=== PATIENT | female | born 1965 | race Caucasian/White ===

== ENCOUNTER 2017-01-07 05:45 | Day surgery (SDC) | payer OTHER ==
[2017-01-05 13:10] LABS: INTERNATIONAL NORMAL RATI 1.2 UNITS (-); PARTIAL THROMBO TIME 32.6 SEC (22.5-37.2); PROTIME (NOT ORD) 14.8 SEC (12.0-14.5)
[2017-01-05 13:12] LABS: MEAN CORPUS HGB CONC 33.7 g/dL (32.0-36.0); MEAN CORPUSCULAR HEMOGLOB 28.7 pg (26.0-34.0); MEAN PLATELET VOLUME 9.5 fL (9.2-13.0); RED CELL COUNT 3.59 10/6/uL (4.0-5.6)
[2017-01-05 13:13] LABS: HEMATOCRIT 30.6 % (36.0-48.0); HEMOGLOBIN 10.3 g/dL (12.0-16.0); MANUAL DIFF YES %; MEAN CORPUSCULAR VOLUME 85.2 fL (80-100); PLATELET COUNT 154 10/3/uL (150-400); RBC DISTRIBUTION WIDTH 16.2 % (12.0-16.0); WHITE BLOOD CELLS 12.8 10/3/uL (4.5-10.5)
[2017-01-05 13:17] LABS: BUN (BLOOD UREA NITROGEN) 14 MG/DL (6-23); CALCIUM, SERUM 8.6 MG/DL (8.5-10.4); CHLORIDE, SERUM 98 MMOL/L (96-112); CO2 (CARBON DIOXIDE) 22 MMOL/L (24-34); CREATININE 0.69 MG/DL (0.55-1.02); GFR AFRICAN AMERICAN 115 ML/MIN (>=60); GFR NON AFRICAN AMERICAN 99 ML/MIN (>=60); GLUCOSE, SERUM 111 MG/DL (60-99); POTASSIUM, SERUM 4.2 MMOL/L (3.5-5.3); SGOT(AST) 277 U/L (5-40); SGPT(ALT) 168 U/L (5-65)
[2017-01-05 13:18] LABS: A/G RATIO 0.5 (0.7-1.9); ALBUMIN 2.3 G/DL (3.5-5.0); ALKALINE PHOSPHATASE 783 U/L (45-117); GLOBULIN 4.7 G/DL (2.5-4.1); SODIUM, SERUM 132 MMOL/L (135-148); TOTAL BILIRUBIN 2.8 MG/DL (0-1.2)
[2017-01-05 13:43] LABS: BAND NEUTROPHILS 12 %; LYMPHOCYTES 4 %; LYMPHOCYTES ABSOLUTE (CALC) 0.51 10/3/uL (0.67-4.30); MONOCYTES 2 %; MONOCYTES ABSOLUTE (CALC) 0.26 10/3/uL (0.21-1.20); NEUTROPHILS ABSOLUTE (CALC) 12.03 10/3/uL (2.02-8.40); PLATELET ESTIMATE ADQ (ADEQUATE); RBC MORPHOLOGY NORM (NORMAL); SEGMENTED NEUTROPHIL (0) 82 %; TOTAL NUCLEATED CELLS 100
--- NOTE | ~2017-01-07 | OP ---
Record Of Operation [facility] [address] [place]. [address] NAME: DILLON GUERRA : 61 STATUS : REG [facility] PAT#: [id number] AGE: 51 ADM/REG DATE : 01/07/17 MR#: [id number] REPORT SERV DATE: 01/07/17 DICTATED BY: NATALY ROWAN III DATE: 01/07/17 REPORT STATUS : Draft TRANSCRIBED BY: MODStephon DATE: 01/07/17 DATE OF PROCEDURE: 01/07/2017 PREOPERATIVE DIAGNOSIS: Recurrent breast cancer with need for subclavian vein Port-A-Cath placement to allow for chronic IV access for chemotherapy. POSTOPERATIVE DIAGNOSIS: Recurrent breast cancer with need for subclavian vein Port-A-Cath placement to allow for chronic IV access for chemotherapy. PROCEDURE: Left subclavian vein Port-A-Cath placement with fluoroscopy. SURGEON: Nataly Rowan M.D. ANESTHESIA: General with intubation. COMPLICATIONS: None. ESTIMATED BLOOD LOSS: Less than 5 mL. SPECIMENS: None. DRAINS: None. LAP AND SPONGE COUNT: Correct x3. BRIEF HISTORY: This 51-year-old female was recently diagnosed with recurrent breast cancer. We were asked by her medical oncologist to place a Port-A-Cath to allow for chronic IV access for chemotherapy. This procedure, the risks, benefits, and alternatives, including not limited to the risk for bleeding, infection, pneumothorax, air embolus, pericardial tamponade, failure of the port to function, infection of the port or subclavian vein thrombosis requiring removal of the port, dislodgement of the Port-A-Cath tubing requiring extraction, and unforeseen complications including deep venous thrombosis, pulmonary embolus, myocardial infarction, stroke, pneumonia, and , were fully and completely explained to the patient prior to surgery. Her questions were answered. She understood the risks and agreed to surgery as planned. DESCRIPTION OF PROCEDURE: After being appropriately identified and after discussing risks of surgery with her again in the preoperative area, the patient was taken to the operating room and placed in the supine position on the operating room table. General anesthesia was administered. She was intubated without difficulty. The upper chest and neck areas were prepped and draped sterilely in the usual fashion. After an appropriate "time-out" per JCAHO discharge standards, an 18-gauge needle was used to identify the left subclavian vein. The vein was identified on the first pass of the needle. A guidewire was passed through the needle and the needle was removed. Fluoroscopy was performed, confirming the tip of the guidewire to be in the correct position in the superior vena cava. A small transverse incision was then made at the exit site of the guidewire from the skin. A subcutaneous Record Of Operation [address] [place]. [address] NAME: DILLON GUERRA : 61 STATUS : REG [facility] PAT#: [id number] AGE: 51 ADM/REG DATE : 01/07/17 MR#: [id number] REPORT SERV DATE: 01/07/17 DICTATED BY: NATALY ROWAN III DATE: 01/07/17 REPORT STATUS : Draft TRANSCRIBED BY: CHRISTIANO DATE: 01/07/17 infraclavicular pocket was made of the appropriate size for the Port-A-Cath housing. The Port-A-Cath housing and tubing were assembled, flushed with a heparin solution and the tubing cut to the appropriate length. The introducer was then placed over the guidewire. The guidewire and inner dilator were removed. The Port-A-Cath tubing was then placed through the sheath as the sheath was peeled away. This went very smoothly. The Port-A-Cath housing was positioned in the infraclavicular pocket. It was secured in place with 2-0 silk sutures to the chest wall. Repeat fluoroscopy was performed, confirming the tip of the Port A-Cath tubing to be in the correct position of superior vena cava. The port was accessed with a Baron needle. It was noted to aspirate blood easily. It was then flushed with heparin solution, noted to flush easily. Hemostasis was assured. The subcutaneous tissue was closed with running 3-0 Vicryl suture. The skin was closed with running subcuticular 4- 0 Monocryl stitch. The incision was injected with 0.5% Marcaine. Dressings were applied. Anesthesia was reversed. The patient was taken to the recovery room in stable condition. She tolerated the procedure well. Her family was informed of the results of surgery. The patient was discharged when stable and comfortable and after chest x-ray has been cleared per Radiology. Her family was advised that she should not drive for two to three days after surgery while using narcotics, that she should resume her usual medications and that she should keep her wound clean and dry for 48 hours. She has been asked to return in two weeks for followup or sooner if fever, chills, wound drainage, or other problems prior to that time. She was given a prescription for Percocet 7.5 one p.o. t.i.d., #12, as needed for pain, which she was advised not to use while driving. She was advised that the port will need to be flushed monthly and this will be arranged per her medical oncologist. RHJ/MODL Nataly Rowan III, M.D. / [id number] CC: Odilia Avery III
--- NOTE | ~2017-01-07 | PREOPHP ---
PreOp History and Physical [id number] [place]. [address] NAME: DILLON GUERRA : 61 STATUS : PRE [facility] PAT#: [id number] AGE: 51 ADM/REG DATE : MR#: [id number] REPORT SERV DATE: 01/07/17 DICTATED BY: NATALY ROWAN III DATE: 12/31/16 REPORT STATUS : Draft TRANSCRIBED BY: MODStephon DATE: 12/31/16 HISTORY OF PRESENT ILLNESS: This 51-year-old female comes to the operating room for subclavian vein Port-A-Cath placement to allow for chronic IV access for chemotherapy. The patient has recently been diagnosed with stage IV breast cancer. She has hepatic metastasis and bone metastasis as well as a large malignancy in the right supraclavicular area. She is receiving chemotherapy. We have been asked by her medical oncologist to place a Port-A-Cath to allow for chronic IV access for chemotherapy. PAST MEDICAL HISTORY: Stage IV breast cancer with known hepatic and skeletal metastasis. MEDICATIONS: Tamoxifen, Flexeril, and Cymbalta. PHYSICAL EXAMINATION: GENERAL: This is a female, in no acute distress. She is alert and oriented x3. She has a firm, poorly defined mass in the right supraclavicular area, which is biopsy-proven to be a metastatic breast cancer. LUNGS: Clear. CARDIAC: Normal. NEURO: Cranial nerves II through XII are normal. ASSESSMENT: 1. A 51-year-old female with stage IV breast cancer with hepatic and skeletal metastasis. 2. Previous history of right breast cancer, treated with modified radical mastectomy and prophylactic left simple mastectomy in July 2012. PLAN: The patient comes to the operating room now for subclavian vein Port-A-Cath placement. This procedure, the risks, benefits, and alternatives, including not limited to the risk for bleeding, infection, pneumothorax, air embolus, pericardial tamponade, dislodgement of Port- A-Cath tubing requiring extraction, failure of the port to function, infection of the port, or subclavian vein thrombosis requiring removal the port, dislodgement of the Port-A-Cath tubing requiring extraction, and unforeseen complications including deep venous thrombosis, pulmonary embolus, myocardial infarction, stroke, pneumonia, and , have been explained to the patient prior to surgery. Her questions have been answered. She understands the risks and agrees to surgery as planned. RHJ/CHRISTIANO Nataly Rowan III, M.D. / [id number]
[~2017-01-07 05:45] MED LIST: ALEVE220 MG PO; AUG875 PO; CYANO1000T PO; CYMBALTA60 PO; EFFEXXR75 PO; FLEX PO; FLEXERIL5 MG PO; IBU-200200 MG PO; MAGNESIUM PO; MAXIDONE PO; MIRALAX POWDER1 PKT PO; NAP500 PO; OXYCOD PO; PR25 PO; TAMOXIFEN20 M1 PO; VITAMIN D1000 UNI1 PO; ZOFRAN8 PO
[2017-05-28] MEDS ORDERED: CALTRAT600 PO (16:46)
[2017-06-01] MEDS ORDERED: DEX4 PO (10:36)
[2017-06-01] MEDS ORDERED: MIRALAX POWDER1 PKT PO (10:37)
[2017-06-01] MEDS ORDERED: PROTONIX PO (10:37)
== END 2017-01-07 10:02 | disposition home or self-care (01) ==
LOC: SDC 05:45
PROVIDERS: Surgery
PROC: 0JHF0XZ Insertion of Tunneled Vascular Access Device into Left Upper Arm Subcutaneous Tissue and Fascia, Open Approach (ICD-10-PCS; principal; 2017-01-07 05:45)
DX: C50.919 Malignant neoplasm of unspecified site of unspecified female breast (principal); E66.9 Obesity, unspecified; R56.9 Unspecified convulsions; M06.9 Rheumatoid arthritis, unspecified; I89.0 Lymphedema, not elsewhere classified; M79.7 Fibromyalgia; F32.9 Major depressive disorder, single episode, unspecified; D64.9 Anemia, unspecified; C78.7 Secondary malignant neoplasm of liver and intrahepatic bile duct; J90 Pleural effusion, not elsewhere classified; Z90.13 Acquired absence of bilateral breasts and nipples; Z98.51 Tubal ligation status
CPT/HCPCS: 71010; 71020; 76000; 80053; 85025; 85610; 85730; 93005; C1751; J0690; J2250; J2405; J3010

== ENCOUNTER 2017-02-01 11:49 | Inpatient (IN) | payer OTHER ==
--- NOTE | ~2017-02-01 | CN ---
Consultation Report [facility] [address] [place]. [address] NAME: DILLON GUERRA : 61 STATUS : ADM Bonnie PAT#: [id number] AGE: 51 ADM/REG DATE : 02/01/17 MR#: [id number] REPORT SERV DATE: 02/02/17 DICTATED BY: ANALI SALAS DATE: 02/02/17 REPORT STATUS : Draft TRANSCRIBED BY: MODL DATE: 02/02/17 NEUROLOGY CONSULTATION DATE OF CONSULTATION: 02/02/2017 REASON FOR CONSULTATION: Seizure. ONCOLOGIST: Dr. Antionette Mcintyre. HOSPITALIST: Dr. Luda Hwang. HISTORY OF PRESENT ILLNESS: The patient is a 51-year-old female, who has a history of metastatic breast cancer, stage IV, and she has been under the care of Dr. Antionette Mcintyre. Yesterday afternoon, the patient was at home with her daughter. The daughter was in another room and she overheard her mother let out a sudden scream. She came into the living room to find her slumped over a chair having "jerky movements." These movements lasted less than one minute and resolved. The daughter did not witness any tongue biting nor did the patient have any incontinence. She was postictal after the event. The daughter called 911, and the patient was brought to the emergency department for further evaluation and treatment. When questioned more extensively, the patient mentioned that she did have some seizure activity in her late teen years. She was placed on Dilantin therapy for four to five years. PAST MEDICAL HISTORY: Stage IV breast cancer with metastases to the liver, bone, and brain. PAST SURGICAL HISTORY: Status post bilateral mastectomy with breast reconstruction. HOME MEDICATIONS: List includes Eliquis 5 mg b.i.d., Natasha 20 mg daily, Zofran 8 mg q.8 hours p.r.n., Roxicodone 5 mg every four hours p.r.n., and Phenergan 25 mg every four hours p.r.n. ALLERGIES: NONE. SOCIAL HISTORY: The patient is . She has four children. She used to work at [employer]. She does not smoke, drink alcohol, or use recreational drugs. FAMILY HISTORY: The patient's mother is alive. She is 72 and has no significant health issues. Her father at the age of 70 with an MD. She has one brother who is obese. REVIEW OF SYSTEMS: See HPI for pertinent positives. PHYSICAL EXAMINATION: GENERAL: The patient is a 51-year-old female, who stands 5 feet 2 inches tall and weighs Consultation Report [id number] [facility] [place]. [address] NAME: DILLON GUERRA : 61 STATUS : ADM Bonnie PAT#: [id number] AGE: 51 ADM/REG DATE : 02/01/17 MR#: [id number] REPORT SERV DATE: 02/02/17 DICTATED BY: ANALI SALAS DATE: 02/02/17 REPORT STATUS : Draft TRANSCRIBED BY: CHRISTIANO DATE: 02/02/17 176 pounds. She is afebrile. VITAL SIGNS: Heart rate 99, respiratory rate 16, O2 saturations on 2 L nasal cannula 94%, and blood pressure 163/86. NEUROLOGIC: The patient is a 51-year-old female who is awake. She is alert x4. Communicates appropriately. Speech is clear. Language is fluent. Pupils are 3 mm. PERRLA. The patient does have a dysconjugate gaze. She has a cranial nerve palsy #6, and she has a partial gaze palsy (cranial nerve #6). She does not have total range of motion with the right eye. Consequently, she does have diplopia. Other cranial nerves are intact. She has limited range of motion with the right arm. It is wrapped for lymphedema, but can wiggle fingers. Strength in the left arm is 5/5. DTRs 1+ bilaterally. No reported sensory deficits. Riuygq-vk-vlox with the left arm is appropriate. Lower extremity strength is 2/5 bilaterally. Patellar reflexes are 1+ bilaterally. Downgoing toes. No reported sensory deficits. NECK: No carotid bruits, JVD, or thyromegaly. CHEST: Lung sounds clear. CARDIAC: Regular rate and rhythm. LABORATORY DATA: CBC shows an H and H of 9.5 and 28.4 and platelet count 107. BMP: Potassium 3.6. TSH is normal. Urinalysis is negative for UTI. MRI of the brain without gadolinium shows stable noncontrast MRI. Faint signal alteration in the region known for metastases (left nikolas, left clivus, and proximal C-spine, questionable red marrow conversion). ASSESSMENT/PLAN: 1. Tonic-clonic seizure, most likely secondary to brain metastasis. The patient will be continued on b.i.d. She will be placed on seizure precautions and Ativan has been ordered p.r.n. seizure only. Her MRI will be repeated with gadolinium to enhance metastatic lesion. She will also have an MRI of the C-spine with gadolinium. An EEG will be performed. Further additional lab work will be drawn. 2. 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 3. Anemia from gastrointestinal bleed. The GI team is following her for this. Thank you again for including us in consultation. We will continue to follow with you. COLE/CHRISTIANO DAVID ReynoldsP- / [id number] CC: Consultation Report [address] [address] NAME: DILLON GUERRA : 61 STATUS : ADM Bonnie PAT#: [id number] AGE: 51 ADM/REG DATE : 02/01/17 MR#: [id number] REPORT SERV DATE: 02/02/17 DICTATED BY: ANALI SALAS DATE: 02/02/17 REPORT STATUS : Draft TRANSCRIBED BY: CHRISTIANO DATE: 02/02/[address] LUDA Sanchez M.D. Luda Hwang II, MD
--- NOTE | ~2017-02-01 | DS ---
Discharge Summary [facility] [address] [place]. [address] NAME: DILLON GUERRA : 61 STATUS : DIS IN PAT#: [id number] AGE: 51 ADM/REG DATE : 02/01/17 MR#: [id number] REPORT SERV DATE: 02/06/17 DICTATED BY: NICOLE MURPHY DATE: 02/05/17 REPORT STATUS : Draft TRANSCRIBED BY: MODL DATE: 02/05/17 ADMISSION DATE: 02/01/2017 DISCHARGE DATE: 02/05/2017 CHIEF COMPLAINT: Seizure. DISCHARGING DIAGNOSES: 1. 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 2. Metastatic breast cancer. 3. Deep vein thrombosis. 4. Anemia likely due to chemotherapy. 5. Heme-positive stools. HISTORY OF PRESENT ILLNESS: Please see full H and P for details regarding initial presentation. HOSPITAL COURSE: 1. Seizure. The patient was seen by Neurology, started on Keppra. MRI did reveal new brain metastases. She was started on Decadron. She has been seen by Radiation Oncology. She will continue to follow with them regarding these brain metastases. 2. Metastatic breast cancer with progression. The patient had increasing metastases on MRI of the brain. Dr. Mcintyre did follow along with us and Dr. Burns from Radiation Oncology. She had treatment today, and she will follow up for continued treatment per Radiation Oncology and Medical Oncology recommendations. In the interim, she will be on 4 mg every six hours of Decadron p.o. 3. History of DVT. The patient is on Eliquis. 4. Anemia. This is thought may be due to heme-positive stools, although Dr. Mcintyre thought this is much more likely due to chemotherapy. Eliquis was resumed and her hemoglobin has been stable. She is 9.6 on the day of discharge. 5. Chronic pain. Continue outpatient medications. Dr. Mcintyre to follow. NEW MEDICATIONS AT DISCHARGE: Keppra 500 mg p.o. b.i.d., Decadron 4 mg p.o. q.6 hours. PERTINENT IMAGING THIS ADMISSION: MRI of the brain; impression, pontine and cerebellar tonsil metastases identified; however, the left hemisphere now demonstrates several additional small 2 x 2 mm metastases not seen on the previous December exam suggesting RECIST criteria progressive disease. DISPOSITION: Home. FOLLOWUP: Medical Oncology and Radiation Oncology. Time spent on this discharge is greater than 30 minutes. Discharge Summary [address] [place] [address] NAME: DILLON GUERRA : 61 STATUS : DIS IN PAT#: [id number] AGE: 51 ADM/REG DATE : 02/01/17 MR#: [id number] REPORT SERV DATE: 02/06/17 DICTATED BY: NICOLE MURPHY DATE: 02/05/17 REPORT STATUS : Draft TRANSCRIBED BY: CHRISTIANO DATE: 02/05/17 NANCY/CHRISTIANO Nicole Murphy MD / [id number] CC: Nicole Murphy MD
--- NOTE | ~2017-02-01 | EEG ---
Electroencephalogram [facility] [address] [place]. [address] NAME: DILLON GUERRA : 61 STATUS : ADM Bonnie PAT#: [id number] AGE: 51 ADM/REG DATE : 02/01/17 MR#: [id number] REPORT SERV DATE: 02/02/17 DICTATED BY: DATE: REPORT STATUS : Draft TRANSCRIBED BY: MODL DATE: 02/02/17 Neurology EEG REPORT CLINICAL INDICATION: New onset seizures. DESCRIPTION: This EEG was performed using 10/20 electrode placement system. During the EEG study, symmetric background activity was noted with predominant occipital rhythm of roughly 8 to 9 hertz. Photic stimulation was performed with appropriate driving response and hyperventilation was not performed. The patient achieved drowsy state as well as stage I and II sleep with appropriate sleep spindles. No focal abnormalities, seizure activity, or seizure discharge was otherwise seen during the EEG evaluation. INTERPRETATION: This EEG study obtained during awake, drowsy as well as stage I and II sleep may be considered within normal limits. No focal abnormalities, seizure activity, or seizure discharge was otherwise noted during the EEG study. Of note, normal EEG does not preclude the diagnosis of seizure disorder. Clinical correlation is recommended. [facility]/MODL Donnell Conteh MD / [id number] CC: Nicola Baird MD
--- NOTE | ~2017-02-01 | HP ---
History And Physical [id number] [facility] [place]. [address] NAME: DILLON GUERRA : 61 STATUS : ADM Bonnie PAT#: [id number] AGE: 51 ADM/REG DATE : 02/01/17 MR#: [id number] REPORT SERV DATE: 02/02/17 DICTATED BY: WILLIAM MAURICE DATE: 02/01/17 REPORT STATUS : Draft TRANSCRIBED BY: MODL DATE: 02/01/17 DATE OF ADMISSION: 02/01/2017 CHIEF COMPLAINT: Seizure at home today. HISTORY OF PRESENT ILLNESS: This is a 51-year-old female with history of metastatic breast cancer, followed by Dr. Antionette Mcintyre, who presents to the emergency room at [facility] after she had a seizure disorder at home. History is obtained from the patient, her daughter who is at bedside, and reviewing data available on the [employer] system. According to Mrs. Guerra and her daughter, she was in her usual state of health until this afternoon when she was sitting in a chair, and her daughter found her on the couch leaning over sideways and having jerky movements. She was drooling saliva from corner of her mouth. No tongue biting. No bowel or urinary incontinence. The patient was lowered to the floor, EMS was summoned, and the patient was brought to the emergency room here. According to the daughter, the patient was staring straight ahead, not responding to any oral commands, not verbalizing anything. Apparently, she was in a postictal state. In the emergency room, her postictal state slowly resolved, but initial workup revealed she had significant new anemia and stool Hemoccult was positive. They called Oncology on-call, spoke with Dr. Woo, who wanted two units of blood to be transfused and Neurology to see her. Hospitalist Service was asked to admit her for further evaluation and treatment. At the time of my evaluation, she was wide awake, alert, oriented to time, place, and person. She did not remember events of what had happened. She denied any chest pain, palpitations, or orthopnea. She had no cough, hemoptysis, night sweats, or weight loss. She did not have any recent fevers, chills, nausea, vomiting, or diarrhea. No history of recent hematemesis, hematochezia, or hematuria according to her. Her stools according to her were dark brown but not black or tarry. PAST MEDICAL HISTORY: Significant for stage IV metastatic breast cancer with mets to the liver and bones under the care of Dr. Antionette Mcintyre. She also has a left subclavian port placed. SOCIAL HISTORY: She does not smoke, drink, or use recreational drugs. FAMILY HISTORY: Noncontributory. MEDICATIONS: At home were reviewed by me in the chart today and reordered by me. REVIEW OF SYSTEMS: As in history of present illness. All other systems were reviewed in detail and are quite unremarkable. PHYSICAL EXAMINATION: History And Physical [address] [address] NAME: DILLON GUERRA : 61 STATUS : ADM Bonnie PAT#: [id number] AGE: 51 ADM/REG DATE : 02/01/17 MR#: [id number] REPORT SERV DATE: 02/02/17 DICTATED BY: WILLIAM MAURICE DATE: 02/01/17 REPORT STATUS : Draft TRANSCRIBED BY: CHRISTIANO DATE: 02/01/17 GENERAL: This is a pleasant 51-year-old, not in any acute distress. HEENT: Head is atraumatic, normocephalic. She is alert, awake, oriented to time, place, and person. Her pupils are equal, reacting to light and accommodating. External ocular muscles are intact. Membranes are moist and pink. Sclerae are nonicteric. NECK: Supple with no jugular venous distention, lymphadenopathy, or thyromegaly. LUNGS: Clear to auscultation with no wheezes, rubs, or crackles. HEART: Heart sounds were regular with no murmurs, rubs, or gallops. ABDOMEN: Soft, nontender. Bowel sounds are present. EXTREMITIES: Showed no cyanosis, clubbing, or edema. NEUROLOGIC: Grossly benign at the time of my exam. She was able to move all four extremities. There was no motor or sensory deficits. Higher functions appeared intact. VITAL SIGNS: Her vital signs today showed a temperature of 98.8, pulse 113, respirations 16 a minute, blood pressure was 148/92, oxygen saturations were 95% on room air. LABORATORY DATA: Reviewed on the [employer] system showed normal CMP with a blood glucose of 94, alkaline phosphatase 783, ALT 168, AST 277. CBC showed a white blood cell count of 3800, hemoglobin 7.9, hematocrit 23.6 this was 10.3 and 30.6 on 01/05/2017. Her MCV was 89.1 today and platelet count was 137,000 not far from where she was. Urinalysis revealed no gross abnormality today. Films of the CT scan and chest x-ray were reviewed by me on the PACS today and interpreted by me. There is no gross abnormality in the CT of the brain, seen today. Chest x-ray films revealed no new infiltrates, lobar consolidations, or pleural effusions. A 12-lead EKG done in the emergency room was reviewed and interpreted by me. There is sinus tachycardia at a rate of [address] elevations. IMPRESSION: 1. Seizure, new. 2. Anemia, requiring blood transfusion. 3. Acute gastrointestinal bleed. 4. Stage IV metastatic breast cancer with metastatic disease to bones and liver. PLAN: We will admit Mrs. Guerra to the Hospitalist Service in the oncology floor for a 24- hour observation including neuro checks. We will type and cross and transfuse two units of packed red blood cells today. Follow hemoglobin and hematocrit levels post transfusion. Her stool Hemoccult was positive here explaining drop in hemoglobin and hematocrit levels. We will go ahead and consult Gastroenterology Service to see her. We will keep her n.p.o. The patient was given intravenous Keppra in the emergency room. We will repeat this in 12 hours again and have Neurology advises from there. We will go ahead and get an MRI of her brain to look for any metastatic disease to the brain. We will also consult Dr. Mcintyre to see her in the morning. Meanwhile, we will hold her Eliquis, and place her on SCDs. Apparently, she was recently diagnosed with deep venous thrombosis, two weeks ago, and Eliquis had been started. We will re-evaluate, her and after GI has seen her, consider further course of action. I have discussed the above plans with the patient and her daughter, questions were answered, and they are agreeable to the above recommendations. She may be a candidate for IVC filter placement. History And Physical [address] [place]. [address] NAME: DILLON GUERRA : 61 STATUS : ADM Bonnie PAT#: [id number] AGE: 51 ADM/REG DATE : 02/01/17 MR#: [id number] REPORT SERV DATE: 02/02/17 DICTATED BY: WILLIAM MAURICE DATE: 02/01/17 REPORT STATUS : Draft TRANSCRIBED BY: CHRISTIANO DATE: 02/01/17 Hospitalist Service will be following her during her stay here. /CHRISTIANO William Maurice M.D. / [id number] CC: Nicola Baird MD
--- NOTE | ~2017-02-01 | CN ---
Consultation Report [facility] [address] [place]. [address] NAME: DILLON GUERRA : 61 STATUS : ADM Bonnie PAT#: [id number] AGE: 51 ADM/REG DATE : 02/01/17 MR#: [id number] REPORT SERV DATE: 02/02/17 DICTATED BY: BECK MORALES DATE: 02/02/17 REPORT STATUS : Draft TRANSCRIBED BY: CHRISTIANO DATE: 02/02/17 GI CONSULTATION DATE OF CONSULTATION: 02/02/2017 REASON FOR CONSULTATION: Evaluation and management of anemia, Hemoccult-positive stools. HISTORY OF PRESENT ILLNESS: Ms. Guerra is a pleasant, but unfortunate, 51-year-old female patient, who has a history of recurrent breast cancer with metastatic disease to the bone, liver, and brain, who was brought in yesterday for seizure activity at home. History of present illness has been gathered from the patient, daughter, and review of the medical records. According to Ms. Guerra, she states she was in her usual state of health up until yesterday afternoon. Her daughter found her on the couch having jerky type movements and drooling. The patient's daughter helped the patient to the floor. 911 was called. She was brought to the emergency room. She was found to be in a postictal state. She became slowly responsive in the emergency room. An initial workup revealed that she had significant anemia with a hemoglobin of 7.9. Last hemoglobin checked 01/05/2017 was 10.3. She was found to be Hemoccult positive without overt signs or symptoms of bleeding. The patient on my assessment is awake, alert, and oriented. She tells me that she has not had any GI upset. She denies nausea, vomiting, heartburn, indigestion, dysphagia, odynophagia, or weight loss. No constipation. No diarrhea. She has not seen bright red blood nor melenic stools. She states that her stools are dark brown in color. She has a history of recent diagnosis of left popliteal and common femoral DVT and was started on Eliquis two weeks ago. She has had an MRI of the brain and is awaiting neurology workup for new-onset seizures. She states that she does have a history of seizures, but it was in her early 20s, then she has not had any trouble with seizure activity since that point in time. She denies ever having an EGD or colonoscopy. She denies family history of colon cancer or colon polyps. I have discussed with her. We will await neurology workup. After she has been cleared for sedated exams, we will plan to proceed with EGD and colonoscopy. She is agreeable to proceed with this test. I discussed the risks, benefits, alternatives, and complications with her to include, but not limited to risk of bleeding, perforation, infection, reaction to medication, as well as cardiac and pulmonary side effects. She gives consent to proceed. PAST MEDICAL HISTORY: Positive for stage IV metastatic breast cancer to the bone and liver as well as brain, left popliteal and femoral DVT diagnosed two weeks ago and placed on Eliquis, RA, fibromyalgia, and Kaya's. PAST SURGICAL HISTORY: Tubal ligation, bilateral mastectomy with reconstruction, and Port-A- Cath placement. SOCIAL HISTORY: She lives independently with her daughter. She denies alcohol, tobacco, or illicits. She states that she uses a cane to ambulate as well as a wheelchair. FAMILY HISTORY: Noncontributory from a GI standpoint. Consultation Report [address] [place]. [address] NAME: DILLON GUERRA : 61 STATUS : ADM Bonnie PAT#: [id number] AGE: 51 ADM/REG DATE : 02/01/17 MR#: [id number] REPORT SERV DATE: 02/02/17 DICTATED BY: BECK MORALES DATE: 02/02/17 REPORT STATUS : Draft TRANSCRIBED BY: CHRISTIANO DATE: 02/02/17 ALLERGIES: NO KNOWN ALLERGIES. HOME MEDICATIONS: Eliquis, Natasha, Zofran, Roxicodone, and Phenergan. REVIEW OF SYSTEMS: A 10-point review of systems has been obtained with pertinent positives being addressed in the history of present illness. PHYSICAL EXAMINATION: VITAL SIGNS: Temperature is 97.2, pulse 93, respirations 16, and blood pressure 135/77. NEUROLOGIC: The patient is an alert female, resting in bed, in no obvious focal deficits. GENERAL: She is cooperative. She is in no obvious acute distress. She is awake, alert, and oriented x3. HEAD, EARS, EYES, NOSE, AND THROAT: Anicteric. Pupils are equal, round, and reactive to light and accommodation. Normocephalic and atraumatic. NECK: No JVD. No palpable nodes. LUNGS: Decreased throughout. Shallow inspirations. CARDIOVASCULAR SYSTEM: Regular rate and rhythm. ABDOMEN: Soft, nondistended, nontender with active bowel sounds in all four quadrants. No organomegaly appreciated. EXTREMITIES: Right arm is wrapped secondary to lymphedema. PERTINENT LABORATORY DATA: Sodium 140, potassium 3.6, BUN is 6, creatinine 0.30. White count 3.9, hemoglobin 9.5, hematocrit is 28.4, admission hemoglobin was 7.9 with hematocrit of 23.7. No LFTs have been obtained. On 01/05/2017, she had a total bilirubin of 2.8, alkaline phosphatase 783, ALT was 168, and AST was 277. MRI of the brain without contrast shows stable noncontrast MRI appearance of the brain, faint signal alteration in the region of known metastatic lesion, left nikolas anteriorly is present. She had continued appearance of replacement of the marrow of the clivus and proximal cervical spine which may represent red marrow conversion or be related to diffuse metastatic disease. Recommend correlation with nuclear medicine bone imaging. ASSESSMENT AND PLAN: 1. Hemoccult-positive stools with anemia. 2. Seizure activity. 3. Metastatic breast cancer. 4. Left lower extremity deep venous thrombosis, on Eliquis, started two weeks ago. PLAN: 1. We will await neuro evaluation for proceeding with sedated exams. If/when cleared, discussed with the patient EGD and colonoscopy and she is agreeable. 2. Continue to hold her Eliquis. We will follow. Consultation Report [place] [address] [place] [address] NAME: DILLON GUERRA : 61 STATUS : ADM Bonnie PAT#: [id number] AGE: 51 ADM/REG DATE : 02/01/17 MR#: [id number] REPORT SERV DATE: 02/02/17 DICTATED BY: BECK MORALES DATE: 02/02/17 REPORT STATUS : Draft TRANSCRIBED BY: CHRISTIANO DATE: 02/02/17 COOPER/CHRISTIANO Beck HARPAL Regalado / [id number] CC: Nicola Baird MD NO PCP
--- NOTE | ~2017-02-01 | CONSULT ---
Radiation Oncology Consult [place] [id number] [place]. [address] NAME: DILLON GUERRA : 61 STATUS : ADM Bonnie PAT#: [id number] AGE: 51 ADM/REG DATE : 02/01/17 MR#: [id number] REPORT SERV DATE: 02/04/17 DICTATED BY: MEMA BURNS DATE: 02/04/17 REPORT STATUS : Draft TRANSCRIBED BY: MODL DATE: 02/04/17 RADIATION ONCOLOGY CONSULTATION CHIEF COMPLAINT: Brain metastases. HISTORY OF PRESENT ILLNESS: Ms. Guerra is a pleasant 51-year-old female with metastatic breast cancer, who has been treated most recently with Abraxane. She presented with one episode of seizure activity where she lost consciousness. She has subsequently been started on Keppra and dexamethasone and has had no further seizure activity. She does have new diplopia and anisocoria. She has no headaches. No other complaints on today's examination. PAST MEDICAL HISTORY: Breast cancer. ALLERGIES: NO KNOWN DRUG ALLERGIES. MEDICATIONS: Medication list reviewed with the patient including the patient's chart. SOCIAL HISTORY: The patient is a nonsmoker. Drinks alcohol on occasion. FAMILY HISTORY: Coronary artery disease, emphysema, and breast cancer. REVIEW OF SYSTEMS: A comprehensive review of systems discussed in detail with Ms. Guerra. Pertinent positives and negatives are included above in the history of present illness. PHYSICAL EXAMINATION: GENERAL: The patient is awake, alert, oriented, in no acute distress. VITAL SIGNS: Afebrile. Vital signs stable. HEENT: Extraocular movements are intact. Sclerae are anicteric. The patient has a mild right cranial nerve 6 palsy and anisocoria. Oral cavity benign without erythema. NECK: Supple. No thyromegaly. LYMPHATICS: No cervical, supraclavicular, or axillary lymphadenopathy palpated. LUNGS: Clear to auscultation bilaterally. Appropriate work of breathing. HEART: Regular rate. Normal sinus rhythm. No murmurs, rubs, or gallops. ABDOMEN: Soft, nontender, nondistended. No hepatosplenomegaly. No apparent hernias. EXTREMITIES: No cyanosis, clubbing, or edema. SKIN: No rashes. No obvious jaundice. LABS AND OTHER DATA: Imaging as described above showing new lesions and a small pontine metastasis. Her disease is somewhat stable, but she does have new cerebellar metastases. ASSESSMENT/PLAN: A 51-year-old female with metastatic breast cancer with progressive brain metastases and new seizure activity. I recommended continuing on Keppra and dexamethasone as an inpatient and outpatient. I have recommended whole brain radiation therapy. A stereotactic radiosurgery would be unable to address her multiple sites of disease. I will Radiation Oncology Consult [address] [address] NAME: DILLON GUERRA : 61 STATUS : ADM Bonnie PAT#: [id number] AGE: 51 ADM/REG DATE : 02/01/17 MR#: [id number] REPORT SERV DATE: 02/04/17 DICTATED BY: EMMA BURNS DATE: 02/04/17 REPORT STATUS : Draft TRANSCRIBED BY: CHRISTIANO DATE: 02/04/17 continue her on dexamethasone throughout treatment and plan to deliver 3000 cGy in 10 fractions. INFORMED CONSENT: The risks, benefits, and alternatives of this treatment have been discussed in detail with Ms. Guerra, and she wishes to proceed. I will attempt to get CT simulation performed tomorrow morning if possible. I appreciate the opportunity to be involved in her care. YAMILE/CHRISTIANO Emma Burns M.D. / [id number] CC: MD Antionette Dow M.D.
[2017-02-01 15:15] LABS: MEAN CORPUS HGB CONC 33.5 g/dL (32.0-36.0); MEAN CORPUSCULAR HEMOGLOB 29.8 pg (26.0-34.0); MEAN PLATELET VOLUME 10.3 fL (9.2-13.0); PLATELET COUNT 137 10/3/uL (150-400)
[2017-02-01 15:16] LABS: ER CBC TAT 0 Hrs 09 Mins; HEMATOCRIT 23.6 % (36.0-48.0); HEMOGLOBIN 7.9 g/dL (12.0-16.0); MANUAL DIFF YES %; MEAN CORPUSCULAR VOLUME 89.1 fL (80-100); RBC DISTRIBUTION WIDTH 20.2 % (12.0-16.0); RED CELL COUNT 2.65 10/6/uL (4.0-5.6); WHITE BLOOD CELLS 3.8 10/3/uL (4.5-10.5)
[2017-02-01 15:26] LABS: BUN (BLOOD UREA NITROGEN) 8 MG/DL (6-23); CALCIUM, SERUM 8.1 MG/DL (8.5-10.4); CHLORIDE, SERUM 102 MMOL/L (96-112); CO2 (CARBON DIOXIDE) 28 MMOL/L (24-34); GFR AFRICAN AMERICAN 138 ML/MIN (>=60); GFR NON AFRICAN AMERICAN 119 ML/MIN (>=60); GLUCOSE, SERUM 94 MG/DL (60-99); POTASSIUM, SERUM 3.8 MMOL/L (3.5-5.3); SODIUM, SERUM 139 MMOL/L (135-148)
[2017-02-01 15:45] LABS: BAND NEUTROPHILS 7 %; ER DIFF TAT 0 Hrs 38 Mins; IMMATURE GRANS ABSOLUTE (CALC) 0.11 10/3/uL (0.0-0.11); LYMPHOCYTES 6 %; LYMPHOCYTES ABSOLUTE (CALC) 0.23 10/3/uL (0.67-4.30); MYELOCYTES 3 %; NEUTROPHILS ABSOLUTE (CALC) 3.46 10/3/uL (2.02-8.40); PLATELET ESTIMATE SLT DEC (ADEQUATE); POIKILOCYTOSIS 1+ (5-10/OIF) (0-5/OIF); SEGMENTED NEUTROPHIL (0) 84 %; TOTAL NUCLEATED CELLS 100
[2017-02-01 15:46] LABS: ANISOCYTOSIS 1+ (5-10/OIF) (0-5/OIF); POLYCHROMASIA 1+ (2-5/OIF) (0-1/OIF)
[2017-02-01 17:11] LABS: ASCORBIC ACID (UR NOT ORDER) NEG (NEG); BILIRUBIN, URINE NEGATIVE (NEG); ER URINALYSIS TAT 0 Hrs 14 Mins; KETONE, URINE TRACE MG/DL (NEG); LEUKOCYTE ESTERASE(NOT OR NEG (NEG); NITRITE (URINE) NEG (NEG); WBC (NOT ORDERED) (RFLEX) 4 (0-5)
[2017-02-01] MEDS ORDERED: MSCONT15 PO (19:25)
[2017-02-01] MEDS ORDERED: ELIQUIS 5 MG TAB5 MG PO (19:26)
[2017-02-02 04:43] LABS: BASOPHILS ABSOLUTE 0.04 10/3/uL (0.0-0.16); EOSINOPHILS 0 %; IMMATURE GRANULOCYTES 2.3 %; IMMATURE GRANULOCYTES ABSOLUTE 0.09 10/3/uL (0.0-0.11); LYMPHOCYTES 14.2 %; LYMPHOCYTES ABSOLUTE 0.56 10/3/uL (0.67-4.30); MEAN CORPUS HGB CONC 33.5 g/dL (32.0-36.0); MEAN CORPUSCULAR HEMOGLOB 29.1 pg (26.0-34.0); MEAN CORPUSCULAR VOLUME 86.9 fL (80-100); MEAN PLATELET VOLUME 9.2 fL (9.2-13.0); MONOCYTES 5.6 %; MONOCYTES ABSOLUTE 0.22 10/3/uL (0.21-1.20); NEUTROPHILS 76.9 %; NEUTROPHILS ABSOLUTE 3.03 10/3/uL (2.02-8.40); PLATELET COUNT 107 10/3/uL (150-400); RBC DISTRIBUTION WIDTH 17.8 % (12.0-16.0); WHITE BLOOD CELLS 3.9 10/3/uL (4.5-10.5)
[2017-02-02 04:47] LABS: HEMATOCRIT 28.4 % (36.0-48.0); HEMOGLOBIN 9.5 g/dL (12.0-16.0); MANUAL DIFF NO %; RED CELL COUNT 3.27 10/6/uL (4.0-5.6)
[2017-02-02 05:01] LABS: BUN (BLOOD UREA NITROGEN) 6 MG/DL (6-23); CALCIUM, SERUM 8.4 MG/DL (8.5-10.4); CHLORIDE, SERUM 105 MMOL/L (96-112); CO2 (CARBON DIOXIDE) 24 MMOL/L (24-34); GFR AFRICAN AMERICAN 152 ML/MIN (>=60); GFR NON AFRICAN AMERICAN 131 ML/MIN (>=60); GLUCOSE, SERUM 98 MG/DL (60-99); PHOSPHORUS, SERUM 2.7 MG/DL (2.5-4.5); POTASSIUM, SERUM 3.6 MMOL/L (3.5-5.3); SODIUM, SERUM 140 MMOL/L (135-148)
[2017-02-02 15:55] LABS: ALBUMIN 2.3 G/DL (3.5-5.0); SGOT(AST) 62 U/L (5-40); SGPT(ALT) 37 U/L (5-65); TOTAL PROTEIN 5.9 G/DL (6.0-8.5)
[2017-02-02 15:57] LABS: ALKALINE PHOSPHATASE 583 U/L (45-117); DIRECT BILIRUBIN 0.5 MG/DL (0.0-0.4); FOLATE 10.1 NG/ML (>5.2); INDIRECT BILIRUBIN(NOT ORDER) 0.6 MG/DL (0.1-0.9); TOTAL BILIRUBIN 1.1 MG/DL (0-1.2)
[2017-02-03 05:30] LABS: BASOPHILS 1.2 %; BASOPHILS ABSOLUTE 0.04 10/3/uL (0.0-0.16); EOSINOPHILS 0 %; HEMATOCRIT 26.7 % (36.0-48.0); HEMOGLOBIN 9.1 g/dL (12.0-16.0); IMMATURE GRANULOCYTES 2.4 %; IMMATURE GRANULOCYTES ABSOLUTE 0.08 10/3/uL (0.0-0.11); LYMPHOCYTES 20.4 %; LYMPHOCYTES ABSOLUTE 0.69 10/3/uL (0.67-4.30); MEAN CORPUS HGB CONC 34.1 g/dL (32.0-36.0); MEAN CORPUSCULAR HEMOGLOB 29.5 pg (26.0-34.0); MEAN CORPUSCULAR VOLUME 86.7 fL (80-100); MEAN PLATELET VOLUME 9.4 fL (9.2-13.0); MONOCYTES 12.1 %; MONOCYTES ABSOLUTE 0.41 10/3/uL (0.21-1.20); NEUTROPHILS 63.9 %; NEUTROPHILS ABSOLUTE 2.17 10/3/uL (2.02-8.40); PLATELET COUNT 99 10/3/uL (150-400); RBC DISTRIBUTION WIDTH 18.1 % (12.0-16.0); RED CELL COUNT 3.08 10/6/uL (4.0-5.6); WHITE BLOOD CELLS 3.4 10/3/uL (4.5-10.5)
[2017-02-03 05:32] LABS: MANUAL DIFF NO %
[2017-02-03 05:46] LABS: BUN (BLOOD UREA NITROGEN) 5 MG/DL (6-23); CALCIUM, SERUM 7.9 MG/DL (8.5-10.4); CHLORIDE, SERUM 106 MMOL/L (96-112); CO2 (CARBON DIOXIDE) 25 MMOL/L (24-34); CREATININE 0.26 MG/DL (0.55-1.02); GFR AFRICAN AMERICAN 159 ML/MIN (>=60); GFR NON AFRICAN AMERICAN 137 ML/MIN (>=60); GLUCOSE, SERUM 95 MG/DL (60-99); POTASSIUM, SERUM 3.4 MMOL/L (3.5-5.3); SODIUM, SERUM 140 MMOL/L (135-148)
[2017-02-04 05:17] LABS: INTERNATIONAL NORMAL RATI 1.2 UNITS (-); PROTIME (NOT ORD) 14.8 SEC (12.0-14.5)
[2017-02-04 05:18] LABS: BASOPHILS 0.4 %; BASOPHILS ABSOLUTE 0.02 10/3/uL (0.0-0.16); EOSINOPHILS 0 %; HEMOGLOBIN 9.8 g/dL (12.0-16.0); IMMATURE GRANULOCYTES ABSOLUTE 0.09 10/3/uL (0.0-0.11); LYMPHOCYTES 15.2 %; LYMPHOCYTES ABSOLUTE 0.68 10/3/uL (0.67-4.30); MEAN CORPUS HGB CONC 33.8 g/dL (32.0-36.0); MEAN CORPUSCULAR HEMOGLOB 28.7 pg (26.0-34.0); MEAN PLATELET VOLUME 9.4 fL (9.2-13.0); MONOCYTES 6.5 %; MONOCYTES ABSOLUTE 0.29 10/3/uL (0.21-1.20); NEUTROPHILS 75.9 %; PLATELET COUNT 111 10/3/uL (150-400); RBC DISTRIBUTION WIDTH 17.9 % (12.0-16.0); RED CELL COUNT 3.41 10/6/uL (4.0-5.6); WHITE BLOOD CELLS 4.5 10/3/uL (4.5-10.5)
[2017-02-04 05:20] LABS: ALBUMIN 2.2 G/DL (3.5-5.0); BUN (BLOOD UREA NITROGEN) 8 MG/DL (6-23); CALCIUM, SERUM 8.2 MG/DL (8.5-10.4); CHLORIDE, SERUM 109 MMOL/L (96-112); CO2 (CARBON DIOXIDE) 24 MMOL/L (24-34); CREATININE 0.29 MG/DL (0.55-1.02); GFR AFRICAN AMERICAN 153 ML/MIN (>=60); GFR NON AFRICAN AMERICAN 132 ML/MIN (>=60); POTASSIUM, SERUM 3.9 MMOL/L (3.5-5.3); SGOT(AST) 43 U/L (5-40); SGPT(ALT) 29 U/L (5-65); SODIUM, SERUM 142 MMOL/L (135-148); TOTAL BILIRUBIN 0.9 MG/DL (0-1.2); TOTAL PROTEIN 5.9 G/DL (6.0-8.5)
[2017-02-04 05:22] LABS: A/G RATIO 0.6 (0.7-1.9); ALKALINE PHOSPHATASE 605 U/L (45-117); GLOBULIN 3.7 G/DL (2.5-4.1); GLUCOSE, SERUM 136 MG/DL (60-99)
[2017-02-04 05:33] LABS: MANUAL DIFF NO %
[2017-02-05 06:01] LABS: INTERNATIONAL NORMAL RATI 1.3 UNITS (-); PROTIME (NOT ORD) 15.8 SEC (12.0-14.5)
[2017-02-05 06:24] LABS: HEMATOCRIT 29.1 % (36.0-48.0); HEMOGLOBIN 9.6 g/dL (12.0-16.0); MEAN CORPUSCULAR HEMOGLOB 29.1 pg (26.0-34.0); MEAN PLATELET VOLUME 10.3 fL (9.2-13.0); NUCLEATED RED BLOOD CELLS 2.9 /100WBC (0-0); PLATELET COUNT 123 10/3/uL (150-400); RBC DISTRIBUTION WIDTH 19.1 % (12.0-16.0); WHITE BLOOD CELLS 4.8 10/3/uL (4.5-10.5)
[2017-02-05 06:25] LABS: A/G RATIO 0.7 (0.7-1.9); ALBUMIN 2.3 G/DL (3.5-5.0); BUN (BLOOD UREA NITROGEN) 10 MG/DL (6-23); CALCIUM, SERUM 8.3 MG/DL (8.5-10.4); CHLORIDE, SERUM 109 MMOL/L (96-112); CO2 (CARBON DIOXIDE) 22 MMOL/L (24-34); CREATININE 0.23 MG/DL (0.55-1.02); GFR AFRICAN AMERICAN 165 ML/MIN (>=60); GFR NON AFRICAN AMERICAN 143 ML/MIN (>=60); GLOBULIN 3.4 G/DL (2.5-4.1); GLUCOSE, SERUM 118 MG/DL (60-99); POTASSIUM, SERUM 4.1 MMOL/L (3.5-5.3); SGOT(AST) 41 U/L (5-40); SGPT(ALT) 31 U/L (5-65); SODIUM, SERUM 141 MMOL/L (135-148); TOTAL BILIRUBIN 0.6 MG/DL (0-1.2); TOTAL PROTEIN 5.7 G/DL (6.0-8.5)
[2017-02-05 06:27] LABS: ALKALINE PHOSPHATASE 536 U/L (45-117)
[2017-02-05 06:31] LABS: MANUAL DIFF YES %; MEAN CORPUSCULAR VOLUME 88.2 fL (80-100)
[2017-02-05 06:37] LABS: BAND NEUTROPHILS 1 %; LYMPHOCYTES 13 %; LYMPHOCYTES ABSOLUTE (CALC) 0.62 10/3/uL (0.67-4.30); MONOCYTES 6 %; MONOCYTES ABSOLUTE (CALC) 0.29 10/3/uL (0.21-1.20); NEUTROPHILS ABSOLUTE (CALC) 3.89 10/3/uL (2.02-8.40); PLATELET ESTIMATE SLT DEC (ADEQUATE); SEGMENTED NEUTROPHIL (0) 80 %; TOTAL NUCLEATED CELLS 100
[2017-02-05 06:38] LABS: ANISOCYTOSIS 1+ (5-10/OIF) (0-5/OIF)
[2017-02-05] MEDS ORDERED: DEX4 PO (15:27)
[2017-02-05] MEDS ORDERED: KEPPRA500 PO (15:28)
[2017-05-28] MEDS ORDERED: CALTRAT600 PO (16:46)
[2017-06-01] MEDS ORDERED: DEX4 PO (10:36)
[2017-06-01] MEDS ORDERED: PROTONIX PO (10:37)
[2017-06-01] MEDS ORDERED: MIRALAX POWDER1 PKT PO (10:37)
== END 2017-02-05 17:43 | disposition home or self-care (01) | DRG 55 ==
LOC: ER 11:49 → 7NO 19:45
PROVIDERS: Emergency Medicine; Internal Medicine; Internal Medicine Pulmonary Disease; Nurse Practitioner Family
PROC: 30233N1 Transfusion of Nonautologous Red Blood Cells into Peripheral Vein, Percutaneous Approach (ICD-10-PCS; principal; 2017-02-01)
DX: C79.31 Secondary malignant neoplasm of brain (principal); C78.7 Secondary malignant neoplasm of liver and intrahepatic bile duct; C79.51 Secondary malignant neoplasm of bone; D62 Acute posthemorrhagic anemia; K92.2 Gastrointestinal hemorrhage, unspecified; I82.4Z2 Acute embolism and thrombosis of unspecified deep veins of left distal lower extremity; D64.81 Anemia due to antineoplastic chemotherapy; C50.911 Malignant neoplasm of unspecified site of right female breast; Z17.0 Estrogen receptor positive status [ER+]; H51.0 Palsy (spasm) of conjugate gaze
CPT/HCPCS: 36415; 36430; 70450; 70551; 70552; 71010; 72156; 77290; 77307; 77334; 77412; 80048; 80053; 80076; 81001; 82140; 82306; 82533; 82607; 82746; 83735; 84100; 84132; 84443; 85025; 85610; 86850; 86900; 86901; 86920; 93005; 95819; 96365; 99285; A9270-GY; A9577; J1953; P9016